=== PATIENT | male | born 1995 | race Caucasian/White ===

== ENCOUNTER 2021-10-21 22:17 | Emergency (ER) | payer MEDICAID ==
[~2021-10-21] VITALS: Ht 172.7 cm; Wt 105.0 kg
[2021-10-21 22:42] VITALS: BP 111/78
[2021-10-21] MEDS ORDERED: TOPUD MT (23:53)
[2021-10-22] MEDS ORDERED: BACITRACIN ZINC OINT UDPKT TOP ONE
[2021-10-22] MEDS ORDERED: ACETAMINOPHEN 325MG TABLET PO ONE
== END 2021-10-22 00:29 | disposition home or self-care (01) ==
LOC: ER 22:17
DX: S60.512A Abrasion of left hand, initial encounter (principal); V49.49XA Driver injured in collision with other motor vehicles in traffic accident, initial encounter; M79.642 Pain in left hand; Y93.89 Activity, other specified; Y92.89 Other specified places as the place of occurrence of the external cause; Y99.8 Other external cause status
CPT/HCPCS: 99283